=== PATIENT | male | born 1955 | race Caucasian/White ===

== ENCOUNTER 2016-09-24 15:55 | Emergency (ER) | payer OTHER ==
[~2016-09-24] VITALS: Ht 188 cm; Wt 124.7 kg
[2016-09-24 16:04] VITALS: BP 163/104
--- NOTE | 2016-09-24 16:06 | NUR ---
ARRIVAL PATIENT ARRIVED TO ED5 AMBULATORY, 2CM LACERATION NOTED TO LEFT INNER WRIST AREA, PATIENT STATES HE WAS USING A KNIVE AND ACCIDENTLY CUT HIS WRIST, NO BLEEDING NOTED ON ARRIVAL, DENIES ANY OTHER INJURIES.
[2016-09-24] MEDS ORDERED: ADACEL VIAL IM ONE ×2 (16:18→16:30)
[2016-09-24] MEDS ORDERED: TRIPLE ANTIBIOTIC OINTMENT TP ONE (16:18)
--- NOTE | 2016-09-24 16:22 | ER.PDOC ---
General Chief Complaint: Extremities Stated Complaint: LEFT WRIST LACERATION Time seen by MD: 16:18 Source: patient Exam Limitations: no limitations History of Present Illness Initial Comments Laceration to left wrist. Currently taking antibiotics for cellulitis. Occurred: just prior to arrival Where: home Severity: moderate Location of Injury: (L) wrist Allergies: Coded Allergies: No Known Allergies (Unverified , 09/24/16) Home Meds Unable to Obtain Active Prescriptions or Reported Meds Past Medical History Medical History: COPD, hypertension Surgical History: appendectomy, back, neck Social History Smoking: non-smoker Alcohol Use: none Drug Use: none Review of Systems Constitutional: no symptoms reported Respiratory: no symptoms reported Cardiovascular: no symptoms reported Gastrointestinal: no symptoms reported Genitourinary: no symptoms reported Musculoskeletal: no symptoms reported Skin: see HPI All Other Systems: Reviewed and Negative Physical Exam General Appearance: Alert, No Apparent Distress Hand: nml inspection, non-tender, no evidence FB 1 - Lac Neuro: sensation nml, motor nml Tendons: tendon function nml Forearm/Elbow/Arm: uninjured above wrist Head/ENT: nml inspection, pharynx nml Neck/Back: nml inspection, non-tender Resp/CVS: no resp distress, lungs clear, heart sounds nml, reg. rate & rhythm Abdomen: non-tender, no organomegaly Laceration/Wound Repair Laceration/Wound Repair : Wound Location: Left wrist Wound cleaned: betadine Anesthesia: 1% Lidocaine Volume Anesthetic (ccs): 10 Wound's Depth, Shape: linear Irrigated w/ Saline (ccs): 30 Wound Repaired With: sutures Suture Size/Type: 4:0, prolene Suture Style: interupted Number of Sutures: 1 Sterile Dressing Applied?: Yes Departure Time of Disposition: 16:21 Disposition: 01 HOME, SELF-CARE Impression: Primary Impression: Laceration of wrist, left Qualified Code: S61.512A - Laceration without foreign body of left wrist, initial encounter Condition: Stable Referrals: JAGDISH CLAY (PCP) PRIMARY CARE PROVIDER Additional Instructions: Remove sutures in 7 days at your PCP or ED Apply Neosporin daily Continue antibiotics at home Scripts Unable to Obtain Active Prescriptions or Reported Meds ÁLVARO GARZA MD Sep 24, 2016 16:22
--- NOTE | 2016-09-24 16:25 | NUR ---
DRESSING NEOSPORIN,TELFA AND STERILE GAUZE APPLIED TO LEFT WRIST AREA, PATIENT TOLERATED WELL.
== END 2016-09-24 16:27 | disposition home or self-care (01) ==
LOC: ER 15:55
DX: S61.512A Laceration without foreign body of left wrist, initial encounter (principal); L03.90 Cellulitis, unspecified; I10 Essential (primary) hypertension; J44.9 Chronic obstructive pulmonary disease, unspecified; X58.XXXA Exposure to other specified factors, initial encounter; Y93.89 Activity, other specified; Y92.098 Other place in other non-institutional residence as the place of occurrence of the external cause; Y99.8 Other external cause status
CPT/HCPCS: 90471; 90715; 99283; 12001

== ENCOUNTER → 2019-04-17 | Outpatient (CLI) | payer OTHER ==
--- NOTE | 2019-04-17 09:51 | DIREP ---
PROCEDURE:MAMMO BILATERAL DIAGNOSTIC COMPARISON:None. INDICATIONS:N64.4 MASTODYNIA BREAST COMPOSITION:There are scattered areas of fibroglandular density. FINDINGS: DIAGNOSTIC MAMMOGRAMDigital CC/MLO views with CAD are obtained. Right Breast:There are no suspicious masses, microcalcifications or architectural distortions visible to suggest malignancy. Left Breast:There are no suspicious masses, microcalcifications or architectural distortions visible to suggest malignancy. CONCLUSION:Bilateral gynecomastia, left slightly worse than right. RECOMMENDATIONS:Follow-up with referring healthcare provider. Final management should be based on findings at clinical breast examination and clinical suspicion. OVERALL FINAL ASSESSMENT:BI-RADS 2: Benign GYNECOMASTIA: Nonneoplastic hyperplasia of the ductal and stromal elements of the male breast in response to hormonal stimulation. Radiologic Pathology Archives: Diseases of the Male Breast: Radiologic-Pathologic Correlation. Gavin Acosta Jr, M.D, et al. [employer] Volume 33, Issue 2; pages 461 - 490 Can be asymmetrical and at times even be unilateral. The imbalance between estrogen action relative to androgen action at the breast tissue level appears to be a parrish etiological factor in gynecomastia. CAUSES: 1. Hormonal: * : maternal estrogens * Pubertal: high estradiol levels * Elderly: Decline in testosterone levels * Hypogonadism/androgen deficiency states: * Klinefelter syndrome * anorchism * Testicular failure (testicular cancer) 2. Drugs: * Diethylstilbestrol * Spironolactone * Thiazide diuretic * Digoxin * Anabolic steroids * Estrogen treatment * Isoniazid * Ergotamine * Narcotics: * Marijuana, heroin * Cimetidine * Nifedipine * Reserpine * Methyldopa * Theophylline * Others 3. Systemic disorders: * Advanced alcoholic cirrhosis * Hemodialysis in chronic renal failure * Chronic pulmonary disease (emphysema, tuberculosis) * Malnutrition 4. Tumors (particularly estrogenic tumors) * Adrenal carcinoma * Pituitary adenoma * Testicular tumors * Hyperthyroidism * Hepatoma 5. Obesity - Gynecomastia vs pseudogynecomastia 6. Idiopathic Dictated by: Eulalio Guerra M.D. on 04/17/2019 at 09:45 AM
== END | disposition home or self-care (01) ==
LOC: RAD 08:50
PROVIDERS: ATTEND Family Medicine
DX: N64.4 Mastodynia (principal)
CPT/HCPCS: 77066

== ENCOUNTER → 2020-10-01 | Outpatient (CLI) | payer OTHER ==
--- NOTE | 2020-10-01 11:38 | DIREP ---
PROCEDURE:US AORTA COMPLETE STUDY COMPARISON:[facility], CT, CTA CHEST NON PULMONARY, 02/18/2019, 08:47 AM. INDICATIONS:AAA SCREENING TECHNIQUE:Grayscale ultrasound was performed of the abdominal aorta. Spectral analysis and color-flow are also performed. FINDINGS: PROXIMAL AORTIC DIAMETER (cm):2.6 x 3.1 cmVelocity: 54.6 cm/s MID-AORTIC DIAMETER (cm):2.0 x 2.4 cmVelocity: 47.2 cm/s DISTAL AORTIC DIAMTER (cm):2.5 x 1.8 cmVelocity: 44.2 cm/s RIGHT COMMON ILIAC DIAMETER (cm):1.6 x 1.9 cmVelocity: 34.2 cm/s LEFT COMMON ILIAC DIAMETER (cm):1.5 x 2.2 cmVelocity: 37.9 cm/s CONCLUSION: 1. No abdominal aortic aneurysm is seen. 2. Ectasia of the suprarenal abdominal aorta is noted measuring a maximum of 3.1 cm. Dictated by: RUBI Physician on 10/01/2020 at 11:21 AM ac
== END | disposition home or self-care (01) ==
LOC: RAD 08:48
PROVIDERS: ATTEND Family Medicine
DX: I71.4 Abdominal aortic aneurysm, without rupture (principal)
CPT/HCPCS: 76770

== ENCOUNTER 2020-11-02 18:03 | Emergency (ER) | payer OTHER ==
[~2020-11-02] VITALS: Ht 177.8 cm; Wt 113.4 kg
[2020-11-02 18:03] VITALS: BP_SYST 116; BP_SYST 121; BP_DIAS 67; BP_DIAS 83
--- NOTE | 2020-11-02 18:17 | ER.PDOC ---
General Chief Complaint: Requesting Medical Care Stated Complaint: CP Time seen by MD: 18:00 Source: patient Exam Limitations: no limitations History of Present Illness Initial Comments 65-year-old male with known coronary artery disease with stents in his LAD and stent like a stent also in his RCA comes in complaining of chest pain. He states his pain has been coming and going since 3:00 today. It is like a cramp in his chest. It is on the left side. He does state he has a little bit of numbness sensation in his hand but that was only after I questioned him specifically about anything in his arms hands or neck. He states that it is only in his left side that he has some numbness. He denied any shortness of breath nausea or diaphoresis with this. He does state that when he would get the discomfort he would go rest and it would get better. He started having some right is we are getting his EKG and his EKG is completely normal. I did give him a nitro spray and he stated that in about 3 minutes that discomfort he had in his chest was gone again. Patient's gang tailer is Dr. Chopra in [place]. Timing/Duration: 4-6 hours Severity/Quality: mild, aching, tightness, other (cramping ) Radiation: arms (possibly into his left arm) Activities at Onset: other (light activity) Prior CP/Workup: Cardiac Cath, Stress Test, Other (Stents in LAD and RCA arm but most likely. He is not sure other than the LAD.) Nitro Today/Relief: No Nitro Taken Today Aspirin Today: 81 mg x 1 Associated Symptoms: denies symptoms Prior symptoms/Treatment: Similar symptoms previous Allergies: Coded Allergies: No Known Allergies (Unverified , 09/24/16) Home Meds Unable to Obtain Active Prescriptions or Reported Meds Past Medical History Medical History: cardiac problems, COPD, hypertension Surgical History: appendectomy, back, neck, other (stents x 2) Social History Smoking: cigarettes, greater than 1 pack/day Alcohol Use: none Drug Use: none Respiratory: cough, shortness of breath Cardiovascular: chest pain All Other Systems: Reviewed and Negative Physical Exam General Appearance: No Apparent Distress, WD/WN HEENT: PERRL/EOMI, Normal ENT Inspection, TMs Normal, Pharynx Normal Neck: Non-Tender, Full Range of Motion, Supple, Normal Inspection Respiratory: chest non-tender, no respiratory distress, no accessory muscle use, decreased breath sounds, rhonchi, wheezing (very slight wheezing ) Cardiovascular: Normal Peripheral Pulses, Regular Rate, Rhythm, No Edema, No Gallop, No JVD, No Murmur Gastrointestinal: Normal Bowel Sounds, No Organomegaly, No Pulsatile Mass, Non Tender, Soft Extremities: Normal Range of Motion, Non-Tender, Normal Inspection, No Pedal Edema, No Calf Tenderness, Normal Capillary Refill Neurologic/Psychiatric: group therapy counselor II-XII NML as Tested, No Motor/Sensory Deficits, Alert, Normal Mood/Affect, Oriented x 3 Skin: Normal Color, Warm/Dry Lymphatic: No Adenopathy Progress Progress [address] Quinonez Pt received in Signout from Dr. Mahoney pending labs and clinical re-eval. Pts labs and ECG are unremarkable. Pt is painfree at time of d/c. I spoke with Dr. Pimentel of [facility] who agreed to have pt seen by Dr. Chopra tomorrow at 1230. Pt stable for d/c EKG/XRAY/CT/US EKG: NSR EKG Comments: NSR, normal axis, normal intervals, normal ST and T, normal ECG ER DEPART Departure Time of Disposition: 19:26 Disposition: 01 HOME, SELF-CARE Impression: Primary Impression: Chest pain Additional Impressions: Obesity Smoker Hx of coronary artery disease Condition: Improved Patient Instructions: Chest Pain (Nonspecific), [id number] Referrals: JAGDISH CLAY (PCP) PRIMARY CARE PROVIDER Additional Instructions: Please follow up with Dr. Chopra tomorrow at 1230 Scripts Unable to Obtain Active Prescriptions or Reported Meds Duration or Time Spent with Pa: 0 Return to Work/School Can a patient return to work?: Yes Can a patient return to school: Yes Problem Qualifiers Primary Impression: Chest pain Chest pain type: unspecified Qualified Codes: R07.9 - Chest pain, unspecified Additional Impressions: Obesity Obesity type: unspecified obesity type Obesity classification: unspecified obesity classification Serious obesity comorbidity presence: unspecified whether serious comorbidity present Qualified Codes: E66.9 - Obesity, unspecified FARHAT MAHONEY MD Nov 02, 2020 18:17 ARVIND QUINONEZ DO Nov 02, 2020 19:28
[2020-11-02 18:18] LABS: BASOPHIL % 0.4 % (0.0-0.2); EOSINOPHIL # 0.3 10^3/uL (0.0-0.2); LYMPHOCYTES % 25.2 % (24.0-44.0); MEAN CORP HGB 30.1 pg (26-34); MONOCYTES # 0.8 10^3/uL (0.3-0.8); NEUTROPHIL # 6.3 10^3/uL (1.8-7.7); NEUTROPHILS % 63.2 % (41.0-85.0); PLATELET COUNT 190 10^3/uL (150-400); RED CELL DISTRIBUTION WIDTH 14.1 % (11.5-14.5)
--- NOTE | 2020-11-02 18:21 | PCM.EKG ---
[facility] Test Date: 2020-11-02 Test Time: 18:18:05 Pat Name: WHITLEY LOONEY Department: Room: Gender: M Collar Pointer: ED : 1955 Requested By: FARHAT MAHONEY Order Number: [id number] Reading MD: Measurements Intervals [place] Rate: 75 P: 40 NM: 163 QRS: 48 QRSD: 100 T: 71 QT: 378 QTc: 423 Interpretive Statements Sinus rhythm No previous ECG available for comparison Please click the below link to view image of tracing.
[2020-11-02] MEDS ORDERED: ASPIRIN ONE (18:24)
[2020-11-02] MEDS ORDERED: ASPIRIN PO STA (18:29)
[2020-11-02 18:46] LABS: ALANINE AMINOTRANSFERASE(ML) 24 U/L (12-78); ALKALINE PHOSPHATASE 80 U/L (50-136); ASPARTATE AMINO TRANSFERASE 13 U/L (0-35); CALCIUM 8.7 mg/dL (8.4-10.5); CARBON DIOXIDE 28.7 mmol/L (20.0-32); GLUCOSE 119 mg/dL (70-110)
[2020-11-02 19:17] VITALS: BP 112/97
--- NOTE | 2020-11-02 19:18 | NUR ---
PT RESTING, DENIES CHEST PAIN AT PRESENT. NAD NOTED. RR REGULAR UNLABORED. 73 NSR ON MONITOR NO ECTOPY. PENDING DISCHARGE.
--- NOTE | 2020-11-02 19:19 | NUR ---
DR. KEYS [facility]
--- NOTE | 2020-11-02 19:49 | NUR ---
DISCHARGE DC INSTRUCTIONS GIVEN TO PT. PT TO FOLLOW UP WITH DR. VALLADARES TOMORROW AT 12:30. PT VERBALIZED UNDERSTANDING. VITALS OBTAINED, WNL. PT REMAINED 73 NSR ON MONITOR NO ECTOPY OR PVC'S NOTED. RR REGULAR UNLABORED. PT DENIED CHEST PAIN OR SOB UPON DC.
== END 2020-11-02 19:20 | disposition home or self-care (01) ==
LOC: ER 18:03
DX: R07.9 Chest pain, unspecified (principal); F17.210 Nicotine dependence, cigarettes, uncomplicated
CPT/HCPCS: 36415; 80053; 82550; 82553; 83880; 84484; 85025; 85610; 85730; 86677; 93005; 99284

== ENCOUNTER → 2020-11-20 | Outpatient (CLI) | payer OTHER, MEDICARE ==
--- NOTE | 2020-11-20 13:00 | DIREP ---
PROCEDURE:US DUPLEX LOWER EXTREMITY ARTERY BILAT COMPARISON:[facility], US, US AORTA COMPLETE STUDY, 10/01/2020, 09:10 AM. INDICATIONS:PVD, HTN, BORDERLINE DIABETIC TECHNIQUE:A comprehensive color duplex Doppler ultrasound examination of the bilateral lower extremities was performed. Color image and bidirectional spectral Doppler wave form analysis, and peak systolic flow measurements of the common femoral, profunda femoral, superficial femoral, and popliteal arteries were performed. Ankle/brachial indices were measured at the distal posterior tibial artery and anterior tibial/dorsalis pedis. FINDINGS: RIGHT LOWER EXTREMITY: PT LISSA: 1.2 AT/DP LISSA: 1.0 COMMON FEMORAL:97.8 cm/sTriphasic PROFUNDA FEMORIS:86.0 cm/sTriphasic SUPERFICIAL FEMORAL (prox):83.9 cm/sTriphasic SUPERFICIAL FEMORAL (mid):93.7 cm/sTriphasic SUPERFICIAL FEMORAL (dist):90.6 cm/sTriphasic POPLITEAL (prox):76.4 cm/sTriphasic POPLITEAL (dist):68.8 cm/sTriphasic POSTERIOR TIBIAL (prox):67.1 cm/sTriphasic POSTERIOR TIBIAL (mid):88.5 cm/sTriphasic POSTERIOR TIBIAL (dist):96.0 cm/sTriphasic PERONEAL (prox):61.6 cm/sTriphasic ANTERIOR TIBIAL (prox):92.5 cm/sTriphasic ANTERIOR TIBIAL (mid):44.5 cm/sTriphasic ANTERIOR TIBIAL (dist):41.4 cm/sTriphasic DORSALIS PEDIS:48.4 cm/sTriphasic LEFT LOWER EXTREMITY: PT LISSA: 0.9 AT/DP LISSA: 1.0 COMMON FEMORAL:102.2 cm/sTriphasic PROFUNDA FEMORIS:73.6 cm/sTriphasic SUPERFICIAL FEMORAL (prox):70.3 cm/sTriphasic SUPERFICIAL FEMORAL (mid):80.5 cm/sTriphasic SUPERFICIAL FEMORAL (dist):97.7 cm/sTriphasic POPLITEAL (prox):67.3 cm/sTriphasic POPLITEAL (dist):81.0 cm/sTriphasic POSTERIOR TIBIAL (prox):100.3 cm/sMonophasic POSTERIOR TIBIAL (mid):74.0 cm/sTriphasic POSTERIOR TIBIAL (dist):62.8 cm/sMonophasic PERONEAL (prox):91.9 cm/sTriphasic ANTERIOR TIBIAL (prox):62.8 cm/sTriphasic ANTERIOR TIBIAL (mid):61.1 cm/sTriphasic ANTERIOR TIBIAL (dist):75.0 cm/sTriphasic DORSALIS PEDIS:66.9 cm/sTriphasic CONCLUSION:No evidence of significant obstructive disease of the arteries of the right or left lower extremities. ABIs greater than 1.4 indicate noncompressible vessels, likely to have significant peripheral vascular disease (PVD). ABIs of 0.91 to 1.3 indicate no significant obstructive disease. ABIs of 0.41 to 0.90 indicate grade I claudication. ABIs less than 0.4 indicate limb-threatening ischemia of grade I or grade II. % stenosisPSV (cm/s)Velocity ratio0-19<150<[id number]>75>300>4 Dictated by: RUBI Physician on 11/20/2020 at 12:44 PM ashu
== END | disposition home or self-care (01) ==
LOC: RAD 09:51
PROVIDERS: ATTEND Podiatrist
DX: I73.9 Peripheral vascular disease, unspecified (principal)
CPT/HCPCS: 93922; 93925

== ENCOUNTER 2020-12-31 20:53 | Emergency (ER) | payer OTHER, MEDICARE ==
[~2020-12-31] VITALS: Ht 188 cm; Wt 120.2 kg
[2020-12-31 21:12] VITALS: BP 126/85
[2020-12-31] MEDS ORDERED: ASPIRIN ONE (21:12)
[2020-12-31] MEDS: NITROSTAT SL STA (21:19)
--- NOTE | 2020-12-31 21:26 | PCM.EKG ---
[facility] Test Date: 2020-12-31 Test Time: 21:06:22 Pat Name: WHITLEY LOONEY Department: Room: Gender: M Sap Basis Consultant: BRIANDA : 1955 Requested By: ASA RGIER Order Number: [id number] Reading MD: Measurements Intervals [place] Rate: 63 P: HI: QRS: 55 QRSD: 110 T: 6 QT: 565 QTc: 579 Interpretive Statements Junctional rhythm Repol abnrm suggests ischemia, anterolateral Prolonged QT interval Baseline wander in lead(s) III,V1,V2,V3,V4,V5,V6 Compared to ECG 11/02/2020 18:18:05 Junctional rhythm now present Early repolarization now present Possible ischemia now present Prolonged QT interval now present Sinus rhythm no longer present Please click the below link to view image of tracing.
[2020-12-31] MEDS: ASPIRIN PO STA (21:30)
[2020-12-31] MEDS: ASPIRIN PO PRN (21:30)
[2020-12-31 21:33] LABS: BASOPHIL % 0.4 % (0.0-0.2); EOSINOPHIL # 0.3 10^3/uL (0.0-0.2); EOSINOPHIL % 3.4 % (0.0-5.0); LYMPHOCYTES # 2.58 10^3/uL1 (1.0-4.8); LYMPHOCYTES % 28.6 % (24.0-44.0); MEAN CORP HGB 30.9 pg (26-34); MONOCYTES # 0.9 10^3/uL (0.3-0.8); MONOCYTES % 10.4 % (5.0-12.0); NEUTROPHIL # 5.1 10^3/uL (1.8-7.7); PLATELET COUNT 187 10^3/uL (150-400); RED CELL DISTRIBUTION WIDTH 14.3 % (11.5-14.5)
--- NOTE | 2020-12-31 21:35 | PCM.EKG ---
[facility] Test Date: 2020-12-31 Test Time: 21:29:49 Pat Name: WHITLEY LOONEY Department: Room: Gender: M Party Plan Sales Unit Sales Leader: BRIANDA : 1955 Requested By: ASA GRIER Order Number: [id number] Reading MD: Measurements Intervals [place] Rate: 74 P: 40 MA: 158 QRS: 57 QRSD: 115 T: 52 QT: 388 QTc: 431 Interpretive Statements Sinus rhythm Nonspecific intraventricular conduction delay Baseline wander in lead(s) II,aVF,V2,V4 Compared to ECG 12/31/2020 21:06:22 Intraventricular conduction delay now present Junctional rhythm no longer present Early repolarization no longer present Possible ischemia no longer present Prolonged QT interval no longer present Please click the below link to view image of tracing.
[2020-12-31 21:58] LABS: ALANINE AMINOTRANSFERASE(ML) 37 U/L (12-78); ALKALINE PHOSPHATASE 72 U/L (50-136); ASPARTATE AMINO TRANSFERASE 21 U/L (0-35); CALCIUM 8.5 mg/dL (8.4-10.5); CARBON DIOXIDE 25.2 mmol/L (20.0-32); GLUCOSE 129 mg/dL (70-110)
--- NOTE | 2020-12-31 22:15 | DIREP ---
PROCEDURE:CHEST 1 VIEW COMPARISON:None. INDICATIONS:CHEST PAIN FINDINGS: LUNGS/PLEURA:No significant pulmonary parenchymal abnormalities. No effusions. VASCULATURE:Normal. Unremarkable pulmonary vasculature. CARDIAC:Normal. No cardiac silhouette abnormality or cardiomegaly. MEDIASTINUM:Normal. No visible mass or adenopathy. BONES:ACDF OTHER:Apical lordotic positioning. EKG leads CONCLUSION:No active cardiopulmonary disease process Dictated by: Eliza Nguyen M.D. on 12/31/2020 at 10:13 PM
[2020-12-31] MEDS ORDERED: TORADOL ONE (22:52)
[2020-12-31] MEDS ORDERED: MYLANTA ONE (22:52)
[2020-12-31] MEDS ORDERED: LIDOCAINE VISCOUS ONE (22:52)
[2020-12-31] MEDS: TORADOL IV STA (23:01)
[2020-12-31] MEDS: MYLANTA PO STA (23:01)
--- NOTE | 2021-01-01 00:16 | ER.PDOC ---
General Chief Complaint: Chest Pain-Cardiac Nature Stated Complaint: CHEST PAIN Time seen by MD: 21:00 Source: patient, family History of Present Illness Initial Comments C5-year-old male complains of onset of substernal chest pain today approximately 1 PM. He states the pain started with progressively worsening sharp pain while he was at rest. Pain was nonradiating he did not have any associated nausea or diaphoresis with the pain patient states that the pain is worse with deep inhalations and with movement of the chest wall. Patient states that he did have a recent stress test for the knee replacement he was to under go that was unremarkable. He had previously been diagnosed sublingual nitro many years ago that he took at home without improvement. Severity/Quality: moderate, sharp Prior CP/Workup: Stress Test Modifying Factors: breathing, coughing, movement Allergies: Coded Allergies: No Known Allergies (Unverified , 09/24/16) Home Meds Unable to Obtain Active Prescriptions or Reported Meds Past Medical History Medical History: cardiac problems, high cholesterol, hypertension Surgical History: cardiac cath, appendectomy, back, knee, stent, other Social History Alcohol Use: none Drug Use: none Constitutional: denies no symptoms reported, denies see HPI, denies chills, denies diaphoresis, denies fever, denies malaise, denies weakness, denies other EENTM: denies no symptoms reported, denies see HPI, denies eye pain, denies blurred vision, denies tearing, denies double vision, denies ear pain, denies ear discharge, denies nose pain, denies nose congestion, denies throat pain, denies throat swelling, denies mouth pain, denies mouth swelling, denies other Respiratory: denies no symptoms reported, denies see HPI, denies cough, denies orthopnea, denies shortness of breath, denies SOB with exertion, denies SOB at rest, denies stridor, denies wheezing, denies other Cardiovascular: chest pain Gastrointestinal: denies no symptoms reported, denies see HPI, denies abdomen distended, denies abdominal pain, denies blood streaked bowels, denies constipated, denies diarrhea, denies difficulty swallowing, denies nausea, denies poor appetite, denies poor fluid intake, denies rectal bleeding, denies vomiting, denies other Genitourinary: denies no symptoms reported, denies see HPI, denies burning, denies dysuria, denies discharge, denies frequency, denies flank pain, denies hematuria, denies incontinence, denies pain, denies urgency, denies other Musculoskeletal: denies no symptoms reported, denies see HPI, denies back pain, denies gout, denies joint pain, denies joint swelling, denies muscle pain, denies muscle stiffness, denies neck pain, denies other Skin: denies no symptoms reported, denies see HPI, denies change in color, denies change in hair/nails, denies dryness, denies lesions, denies lumps, denies rash, denies other Psychiatric/Neurological: denies no symptoms reported, denies see HPI, denies anxiety, denies depressed, denies emotional problems, denies headache, denies numbness, denies paresthesia, denies pre-existing deficit, denies seizure, denies tingling, denies tremors, denies weakness, denies other Endocrine: denies no symptoms reported, denies see HPI, denies excessive sweating, denies flushing, denies intolerance to cold, denies intolerance to heat, denies increased hunger, denies increased thrist, denies increased urine, denies unexplained weight gain, denies unexplaned weight loss, denies other Hematologic/Lymphatic: denies no symptoms reported, denies see HPI, denies anemia, denies blood clots, denies easy bleeding, denies easy bruising, denies swollen glands, denies other Physical Exam General Appearance: No Apparent Distress HEENT: PERRL/EOMI, Normal ENT Inspection Neck: Non-Tender, Normal Inspection Respiratory: lungs clear, normal breath sounds, other (Tenderness with pressure to the chest wall substernal.) Cardiovascular: Normal Peripheral Pulses, Regular Rate, Rhythm Gastrointestinal: Normal Bowel Sounds, Non Tender Neurologic/Psychiatric: data management engineer II-XII NML as Tested, No Motor/Sensory Deficits, Alert, Normal Mood/Affect, Oriented x 3 Skin: Normal Color Lymphatic: No Adenopathy Results/Orders Results/Orders Orders - ASA GRIER DO Cbc With Auto Diff (12/31/20 21:19) Comprehensive Metabolic Panel (12/31/20 21:19) Creatine Kinase (12/31/20 21:19) Creatine Kinase Mb (12/31/20 21:19) Troponin I (12/31/20 21:19) Probnp B-Type Refrigerating Engineer (12/31/20 21:19) PT (12/31/20 21:19) Partial Thromboplastin Time. (12/31/20 21:19) Helicobacter Pylori (12/31/20 21:19) D-Dimer (12/31/20 21:19) Xr Chest 1v (12/31/20 21:19) Ekg-Routine (12/31/20 21:19) Aspirin (Aspirin) (12/31/20 21:30) Nitroglycerin (Nitrostat) (12/31/20 21:19) Ekg-Routine (12/31/20 21:29) Aspirin (Aspirin) (12/31/20 21:30) Ketorolac Tromethamine (Toradol) (12/31/20 22:36) Mag Hydrox/Aluminum Hyd/Simeth (Mylanta) (12/31/20 22:36) Ketorolac Tromethamine (Toradol) (12/31/20 22:52) Lidocaine Hcl (Lidocaine Viscous) (12/31/20 22:52) Mag Hydrox/Aluminum Hyd/Simeth (Mylanta) (12/31/20 22:52) Vital Signs Date Time Temp Pulse Resp B/P (MAP) Pulse Ox O2 Delivery O2 Flow Rate FiO2 12/31/20 21:12 99.2 69 20 12/31/20 21:12 99.2 69 20 126/85 (99) 97 Room Air 12/31/20 21:12 99.2 69 20 97 Administered Medications Medications (Trade) Dose Ordered Sig/Avani Route PRN Reason Start Time Stop Time Status Last Admin Dose Admin Aspirin (Aspirin) 162 mg STAT STAT PO 12/31/20 21:30 12/31/20 21:32 DC 12/31/20 21:30 162 MG Ketorolac Tromethamine (Toradol) 30 mg OT STAT IV 12/31/20 22:36 12/31/20 22:38 DC 12/31/20 23:01 30 MG Nitroglycerin (Nitrostat) 0.4 mg OT STAT SL 12/31/20 21:19 12/31/20 21:26 DC 12/31/20 21:19 0.4 MG Laboratory Tests Test 12/31/20 20:15 White Blood Count 9.0 10^3/uL (4.5-11.0) Red Blood Count 5.54 10^6/uL (4.50-5.90) Hemoglobin 17.1 g/dL (13.9-16.3) H Hematocrit 50.5 % (37.0-53.0) Mean Corpuscular Volume 91.2 fL (78-100) Mean Corpuscular Hemoglobin 30.9 pg (26-34) Mean Corpuscular Hemoglobin Concent 33.9 g/dL (33-36.5) Red Cell Distribution Width 14.3 % (11.5-14.5) Platelet Count 187 10^3/uL (150-400) Mean Platelet Volume 10.0 fL (7.8-11.0) Neutrophils (%) (Auto) 57.0 % (41.0-85.0) Lymphocytes (%) (Auto) 28.6 % (24.0-44.0) Monocytes (%) (Auto) 10.4 % (5.0-12.0) Neutrophils # (Auto) 5.1 10^3/uL (1.8-7.7) Lymphocytes # (Auto) 2.58 10^3/uL1 (1.0-4.8) Monocytes # (Auto) 0.9 10^3/uL (0.3-0.8) H Absolute Immature Granulocyte (auto 0.02 10^3 u/L (0-2) Absolute Eosinophils (auto) 0.3 10^3/uL (0.0-0.2) H Immature Granulocytes % 0.20 % (0.00-0.50) Eosinophils % 3.4 % (0.0-5.0) Basophils % 0.4 % (0.0-0.2) H Basophils # 0.0 10^3/uL (0.0-0.1) Prothrombin Time 10.1 SEC (9.6-12.0) Prothrombin Time INR (Non-Therap) 0.9 Activated Partial Thromboplast Time 24.9 SEC (24.67-30.72) D-Dimer 0.50 mg/L (0.19-0.49) H Sodium Level 141 mmol/L (132-145) Potassium Level 4.0 mmol/L (3.6-5.2) Chloride Level 104.0 mmol/L (96-109) Carbon Dioxide Level 25.2 mmol/L (20.0-32) Anion Gap 15.8 Blood Urea Nitrogen 15 mg/dL (7-18) Creatinine 1.05 mg/dL (0.59-1.40) Estimated GFR () 85.8 (>/=60) Est GFR (CKD-EPI)(Non-Afr Icelandic) 70.9 (>/=60) BUN/Creatinine Ratio 14.0 Glucose Level 129 mg/dL (70-110) H Calcium Level 8.5 mg/dL (8.4-10.5) Total Bilirubin 0.5 mg/dL (0.2-1.0) Aspartate Amino Transferase (AST) 21 U/L (0-35) Alanine Aminotransferase (ALT) 37 U/L (12-78) Alkaline Phosphatase 72 U/L (50-136) Total Creatine Kinase 145 U/L (39-308) Creatine Kinase MB 3.9 ng/mL (0.5-3.6) H Troponin I < 0.02 ng/mL (0.00-0.05) Pro-B-Type Natriuretic Peptide 17 pg/mL (0-125) Total Protein 7.2 g/dL (6.4-8.2) Albumin 4.1 g/dL (3.4-5.0) Globulin 3.1 Albumin/Globulin Ratio 1.322 Helicobacter pylori Screen NEGATIVE (NEGATIVE) EKG/XRAY/CT/US EKG: NSR, no ST T wave changes EKG Comments: No ST segment elevation or pathologic Q waves. XRAY Comments: No acute findings. ER DEPART Departure Time of Disposition: 00:15 Disposition: 01 HOME / SELF CARE / HOMELESS Impression: Primary Impression: Atypical chest pain Condition: Improved Patient Instructions: Chest Pain (Nonspecific), [id number] Referrals: JAGDISH CLAY (PCP) PRIMARY CARE PROVIDER Scripts Unable to Obtain Active Prescriptions or Reported Meds Duration or Time Spent with Pa: 20 ASA GRIER DO Jan 01, 2021 00:16
== END 2021-01-01 00:31 | disposition home or self-care (01) ==
LOC: ER 20:53
DX: R07.89 Other chest pain (principal); R05 Cough; I10 Essential (primary) hypertension; E78.00 Pure hypercholesterolemia, unspecified; Z79.82 Long term (current) use of aspirin
CPT/HCPCS: 36415; 71045; 80053; 82550; 82553; 83880; 84484; 85025; 85379; 85610; 85730; 86677; 93005 ×2; 96374; 99285; J1885; J3490

== ENCOUNTER 2023-07-12 12:37 | Emergency (ER) | payer OTHER ==
[~2023-07-12] VITALS: Ht 188 cm; Wt 122.5 kg
[2023-07-12 12:37] VITALS: BP 142/81; PULSE 75; RESP 18; TEMP 98.7; O2SAT 96
[2023-07-12] MEDS ORDERED: NS 1000ML 1,000 ML STA (12:49)
[2023-07-12] MEDS ORDERED: MECLIZINE HCL PO STA (12:49)
[2023-07-12] MEDS ORDERED: NS 1000ML 1,000 ML ONE (12:58)
[2023-07-12] MEDS ORDERED: MECLIZINE HCL ONE (12:58)
[2023-07-12 13:08] LABS: BASOPHIL % 0.4 % (0.0-0.2); EOSINOPHIL # 0.2 10^3/uL (0.0-0.2); EOSINOPHIL % 2.8 % (0.0-5.0); HEMATOCRIT(ML) 46.3 % (37.0-53.0); IG % 0.3 % (0.00-0.50); LYMPHOCYTES # 2.01 10^3/uL1 (1.0-4.8); LYMPHOCYTES % 25.7 % (24.0-44.0); MEAN CORP HGB 32.5 pg (26-34); MEAN CORP HGB CONCENTRATION 34.6 g/dL (33-36.5); MEAN CORP VOLUME 93.9 fL (78-100); MONOCYTES # 0.6 10^3/uL (0.3-0.8); MONOCYTES % 7.8 % (5.0-12.0); NEUTROPHIL # 4.9 10^3/uL (1.8-7.7); RED BLOOD CELL 4.93 10^6/uL (4.50-5.90); RED CELL DISTRIBUTION WIDTH 13.6 % (11.5-14.5); WHITE BLOOD CELL 7.8 10^3/uL (4.5-11.0)
[2023-07-12 13:26] LABS: ALBUMIN(ML) 3.7 g/dL (3.4-5.0); ALBUMIN/GLOBULIN RATIO 1.088; ANION GAP 12.6; BUN/CREATININE RATIO 12.63 (10.0-20.0); CALCIUM 8.8 mg/dL (8.4-10.5); CARBON DIOXIDE 30.2 mmol/L (20.0-32); CREATININE SERUM 0.95 mg/dL (0.59-1.40); EST GFR, NON-AA 78.8 (>/=60); POTASSIUM 3.8 mmol/L (3.6-5.2)
[2023-07-12 13:34] VITALS: BP 125/54; PULSE 61; RESP 18; TEMP 98.7; O2SAT 95
[2023-07-12 14:17] VITALS: BP 133/91; PULSE 67; RESP 18; TEMP 98.7; O2SAT 95
[2023-07-12 14:55] VITALS: BP 150/94; PULSE 67; RESP 18; TEMP 98.7; O2SAT 95
== END 2023-07-12 15:04 | disposition home or self-care (01) ==
LOC: ER 12:37
DX: H53.2 Diplopia (principal); E11.40 Type 2 diabetes mellitus with diabetic neuropathy, unspecified; E78.00 Pure hypercholesterolemia, unspecified; I10 Essential (primary) hypertension; F17.210 Nicotine dependence, cigarettes, uncomplicated; Z90.89 Acquired absence of other organs
CPT/HCPCS: 99285; 70498; 96360; 71045; 96361; 70496; 80053; 85025; 36415; 84484; 93005; 70450; J7030; J8597; Q9965